=== PATIENT | female | born 1995 | race Caucasian/White ===

== ENCOUNTER → 2017-01-07 | Outpatient (CLI) | payer MEDICAID ==
[~2017-01-07] MED LIST: CRYSELLE-28 TA1 EACH PO
== END | disposition disaster alternative care site (69) ==
LOC: LKCL 11:18
DX: R10.11 Right upper quadrant pain (principal); R07.81 Pleurodynia

== ENCOUNTER → 2017-01-13 | Outpatient (CLI) | payer MEDICAID | END | disposition disaster alternative care site (69) | LOC: GRAD 01-09 11:00 | DX: R10.11 Right upper quadrant pain (principal); R11.0 Nausea | CPT/HCPCS: A9537 ==

== ENCOUNTER 2017-02-07 08:19 | Emergency (ER) | payer MEDICAID ==
--- NOTE | ~2017-02-07 | ER ---
PATIENT'S NAME: MARTHA [facility]ISE [facility] AGE: 21 Y [address] ROOM: [place] [address] LOCATION: [facility] ADMIT DATE: 02/07/2017 ER/Outpatient Report DISCHARGE DATE: 02/07/2017 FAMILY PHYSICIAN: Colin Perez MD ATTENDING PHYSICIAN: Brandyn Armendariz CHIEF COMPLAINT: Chest pain. HISTORY OF PRESENT ILLNESS: The patient states that she woke up this morning with a slight right-sided chest pain, that radiates through to her back. It is worse when she breathes deep or tries to move her right arm. She denies any fevers or chills. She has had no cough. She states she has had similar presentations in the past. She is a smoker. She has no other known medical conditions and no known relatives with cardiac disease. PAST MEDICAL HISTORY: Documented on the record and reviewed by me. SOCIAL HISTORY: Documented on the record and reviewed by me. MEDICATIONS: Documented on the record and reviewed by me. ALLERGIES: DOCUMENTED ON THE RECORD AND REVIEWED BY ME. REVIEW OF SYSTEMS: All systems were reviewed and negative except as noted in the HPI. PHYSICAL EXAMINATION: VITAL SIGNS: Blood pressure 106/66, pulse is 87, respiratory rate is 16, temperature 96.9, SpO2 is 98% on room air. Pain is rated 8/10. GENERAL: An age-appropriate female, resting comfortably, sitting upright on the exam table, in no obvious pain or distress. NEUROLOGIC: Awake and alert. GCS is 15. No focal deficits. No asymmetry. HEENT: Normocephalic, atraumatic. Eyes are PERRL. Oropharynx is clear. NECK: Supple. Trachea is midline. CHEST: Heart is regular rate and rhythm with no murmurs. LUNGS: Clear to auscultation bilateral with no rhonchi, wheezes, or rales. ABDOMEN: Soft, nontender, and nondistended. No rebound or guarding. BACK: Nontender to palpation throughout. No CVA tenderness. There is some paraspinal tenderness along the rhomboids on the right side. Chest wall, PATIENT'S NAME: MARTHA DENISE [facility] AGE: 21 Y [address] ROOM: [place] [address] LOCATION: [facility] ADMIT DATE: 02/07/2017 ER/Outpatient Report DISCHARGE DATE: 02/07/2017 FAMILY PHYSICIAN: Colin Perez MD ATTENDING PHYSICIAN: Brandyn Armendariz slight tenderness throughout the right costochondral region. SKIN: Warm, dry, and intact. EXTREMITIES: Warm and well perfused. No obvious edema, swelling, or erythema. LABORATORY DATA AND X-RAYS: Chest x-ray unremarkable. EKG: Sinus rhythm, rate of 75 with normal intervals and axis. No signs of acute ischemia. Repeat unchanged. Initial and repeat troponin, CK-MB are non-concerning and below threshold. CMS without significant abnormalities other than a potassium at 3.3. Magnesium of 2.0. CBC without any significant abnormalities. INR is 1.12. IMPRESSION: 1. Chest discomfort. 2. Mild hypokalemia. EMERGENCY DEPARTMENT COURSE: The patient was seen and evaluated as above. She did not appear to be ischemic. No aspirin was given. She was given Tylenol and Toradol with significant improvement in her symptoms. She has no significant risk factors and atypical presentation for ACS. Not consistent with pneumonia or other pulmonary process at this time. Vital signs' presentation and history not consistent with PE today. We will have her follow up with her primary care physician as needed. Mlky-[id number] anti-inflammatories as required. She should have her potassium levels rechecked as well. All questions were answered, and the patient was discharged in good condition. MD JANICE BANUELOS/modl /[id number] d: 02/07/17 2133 t: 02/26/17 0852, OUTPATIENT REPORT
[2017-02-07 09:02] LABS: BASOPHIL % 0.6 %; EOSINOPHIL # 0.2 K/uL (0.0-0.5); EOSINOPHIL % 3.6 %; HEMATOCRIT 43.2 % (33.0-46.0); HEMOGLOBIN 14.2 g/dL (11.0-15.0); LYMPHOCYTE # 2.6 K/uL (0.8-4.0); LYMPHOCYTE % 50.2 %; MCH 29.5 pg (27.0-34.0); MCHC 32.9 gm/dL (32.0-36.5); MCV 89.8 fl (83.0-98.0); MONOCYTE # 0.4 K/uL (0.0-1.0); MONOCYTE % 8.4 %; NEUTROPHIL % 37.2 %; NRBC % 0 /100WBC (0-0.00); PLATELET COUNT 295 K/uL (150-450); RDW-CV 12.9 % (11.9-14.6); WBC 5.3 K/uL (4.0-11.0)
[2017-02-07 09:03] LABS: RBC 4.81 M/uL (3.50-5.00)
[2017-02-07 09:14] LABS: INR - (THERAPEUTIC) 1.12 (0.92-1.07); PROTIME 11.8 SECONDS (9.8-11.4); PTT 28 SECONDS (25-32)
[2017-02-07 09:23] LABS: ALK PHOS 73 IU/L (33-138); ALT 22 IU/L (12-78); ANION GAP 10.3 (10.0-19.0); AST 17 IU/L (10-40); BLOOD UREA NITROGEN 11 mg/dL (6-24); CALCIUM 8.7 mg/dL (8.5-10.5); CHLORIDE 108 mMol/L (96-110); CO2 28 mMol/L (22-32); CPK 199 IU/L (21-215); CREATININE 0.8 mg/dL (0.5-1.1); ESTIMATED GFR (MDRD EQUATION) > 60; POTASSIUM 3.3 mMol/L (3.7-5.1); SODIUM 143 mMol/L (135-145); TOTAL BILIRUBIN 0.3 mg/dL (0.0-1.5); TOTAL PROTEIN 7.1 g/dL (6.0-8.4)
[2017-02-07 11:12] LABS: CPK 174 IU/L (21-215)
[2017-06-09] MEDS ORDERED: CRYSELLE-28 TA1 EACH PO (16:29)
== END 2017-02-07 11:46 | disposition disaster alternative care site (69) ==
LOC: GMED 08:19
PROVIDERS: Emergency Medicine
DX: R07.89 Other chest pain (principal); E87.6 Hypokalemia
CPT/HCPCS: J1885

== ENCOUNTER → 2017-06-11 | Day surgery (SDC) | payer MEDICAID ==
[~2017-06-11] VITALS: Ht 162.6 cm; Wt 49.5 kg
== END | disposition disaster alternative care site (69) ==
LOC: GPOC 06-09 16:00 → GEND 08:39
PROC: 0DB98ZX Excision of Duodenum, Via Natural or Artificial Opening Endoscopic, Diagnostic (ICD-10-PCS; principal; 2017-06-11)
PROC: 0DBG8ZX Excision of Left Large Intestine, Via Natural or Artificial Opening Endoscopic, Diagnostic (ICD-10-PCS; 2017-06-11)
PROC: 0DBF8ZX Excision of Right Large Intestine, Via Natural or Artificial Opening Endoscopic, Diagnostic (ICD-10-PCS; 2017-06-11)
DX: R19.7 Diarrhea, unspecified (principal); R10.13 Epigastric pain; R10.11 Right upper quadrant pain; Z88.1 Allergy status to other antibiotic agents; Z98.890 Other specified postprocedural states
CPT/HCPCS: J2001; J7030

== ENCOUNTER → 2017-06-20 | Outpatient (CLI) | payer MEDICAID | END | disposition disaster alternative care site (69) | LOC: GRAD 10:33 | DX: R14.0 Abdominal distension (gaseous) (principal) | CPT/HCPCS: A9541 ==